=== PATIENT | female | born 1990 | race Caucasian/White ===

== ENCOUNTER 2019-03-12 21:45 | Inpatient (IN) ==
[~2019-03-12 21:45] MED LIST: Famotidine 20 MG/2 ML VIAL IVP PRN; Lidocaine 1% 20 ML MDV INFILT PRN; Metoclopramide 10 MG/2 ML VIAL IVP PRN; Naloxone 0.4 MG/ML INJ IVP PRN; Ondansetron 4 MG/2 ML VIAL IVP PRN; Oxytocin 20 units/ LR 1000 mL 20 UNIT/1,000 ML BAG IVC SCH
[2019-03-12 22:35] LABS: Basophils % 0.2 %; Eosinophils # 0.1 K/mcL (0.0-0.6); Eosinophils % 0.5 %; Hematocrit 34.6 % (35.3-44.9); Hemoglobin 11.8 g/dL (11.5-15.4); Immature Granulocytes % 1.1 % (0-4); Lymphocytes # 2.2 K/mcL (0.6-4.6); Lymphocytes % 18.3 %; Mean Corpuscular HGB Conc 34.1 g/dL (31.6-35.5); Mean Corpuscular Hemoglobin 31.7 pg (28.0-33.3); Mean Platelet Volume 10.7 fL (9.4-12.4); Monocytes % 7.8 %; Neutrophils # 8.8 K/mcL (1.6-8.9); Platelet Count 216 K/mcL (140-400); Red Blood Count 3.72 M/mcL (3.82-4.97); Red Cell Distribution Width 13.1 % (11.5-14.5); Segmented Neutrophils % 72.1 %; White Blood Count 12.2 K/mcL (4.3-11.1)
[2019-03-12 22:53] LABS: Amphetamine Screen,Urine Negative ng/mL (Cutoff=1000); Barbiturate Screen,Urine Negative ng/mL (Cutoff=200); Benzodiazepines Screen,Urine Negative ng/mL (Cutoff=200); Cannabinoid Screen,Urine Negative ng/mL (Cutoff = 50); Cocaine Screen,Urine Negative ng/mL (Cutoff= 300); Opiate Screen,Urine Negative ng/mL (Cutoff=300); Phencyclidine Screen,Urine Negative ng/mL (Cutoff=25)
[2019-03-13] MEDS ORDERED: miSOPROStoL 25 MCG TABLET PO PRN (00:13)
[2019-03-13] MEDS: *HR* Nalbuphine 10 MG/ML AMPUL IVP PRN ×2 (07:35→09:33)
[2019-03-13] MEDS ORDERED: Epidural Premix (fent/bupiv) 110 ML EP SCH (08:00)
[2019-03-13] MEDS: Ringers Solution, Lactated 1,000 ML IVC SCH (08:39)
[2019-03-13] MEDS ORDERED: *HR* FentaNYL (PF) 100 MCG/2 ML VIAL ONE (10:11)
[2019-03-13] MEDS ORDERED: Lidocaine/EPI 1:200k 2% PF 20 ML VIAL ONE (10:12)
[2019-03-13] MEDS ORDERED: Benzocaine/Menthol 56 GM AEROSOL SPRAY TP PRN (16:58)
[2019-03-13] MEDS ORDERED: Lanolin 7 G OINT...G. TP PRN (16:58)
[2019-03-13] MEDS ORDERED: Acetaminophen 325 MG TABLET PO PRN (16:58)
[2019-03-13] MEDS: Ibuprofen 600 MG TABLET PO PRN (18:36)
[2019-03-14 07:53] LABS: Basophils # 0.1 K/mcL (0.0-0.2); Basophils % 0.3 %; Eosinophils # 0.1 K/mcL (0.0-0.6); Eosinophils % 0.3 %; Hematocrit 36.2 % (35.3-44.9); Hemoglobin 12.6 g/dL (11.5-15.4); Immature Granulocytes % 0.9 % (0-4); Lymphocytes # 2.3 K/mcL (0.6-4.6); Lymphocytes % 12.7 %; Mean Corpuscular HGB Conc 34.8 g/dL (31.6-35.5); Mean Corpuscular Hemoglobin 31.7 pg (28.0-33.3); Mean Platelet Volume 11.6 fL (9.4-12.4); Monocytes # 0.9 K/mcL (0.0-1.3); Neutrophils # 14.5 K/mcL (1.6-8.9); Platelet Count 220 K/mcL (140-400); Red Blood Count 3.98 M/mcL (3.82-4.97); Red Cell Distribution Width 13.1 % (11.5-14.5); Segmented Neutrophils % 80.8 %; White Blood Count 17.9 K/mcL (4.3-11.1)
[2019-03-14 08:16] LABS: Platelet Estimate Normal (Normal)
[2019-03-14] MEDS: Ibuprofen 600 MG TABLET PO PRN (08:34)
[2019-03-14] MEDS ORDERED: Prenatal Vit/FA 1 EACH TABLET PO SCH (09:00)
[2019-03-14 09:13] VITALS: BP 102/64
[2019-03-14] MEDS: Oxytocin 20 units/ LR 1000 mL 20 UNIT/1,000 ML BAG IVC SCH ×2 (09:26→09:27)
[2019-03-14] MEDS: Ringers Solution, Lactated 1,000 ML IVC SCH (09:27)
== END 2019-03-14 15:54 | disposition home or self-care (01) | DRG 807 ==
LOC: 1NENULAB → 1NENUOBS 03-13 17:07
PROVIDERS: ADMIT Registered Nurse; ATTEND Registered Nurse